=== PATIENT | male | born 1955 | race African-American/Black ===

== ENCOUNTER 2017-10-06 04:38 | Emergency (ER) | payer MEDICARE, OTHER ==
--- NOTE | 2017-10-06 04:39 | ED Physician Documentation ---
Skin Rash - HISTORIAN Historian: patient - HPI Stated Complaint: allergic reaction to PCN Chief Complaint: Skin Rash Onset: minutes (45) Timing: still present Duration: persistent since Location: generalized Quality: itchy Identified Cause?: Yes (PCN ) Where: home Context: Medication Exposure: antibiotic Context: Food Exposure: none Further Comments: yes (He states he started to have some tooth pain around 2 am and he took an old PCN that he was prescribed in Jul. He states he then noticed ithicng and rash so he came to ER. He has not tired any meds for allergy . No shortness of breath. No chest pain) - ROS CONST: none CVS/RESP: denies: chest pain, shortness of breath EYES/ENT: denies: eye itching, sore throat GI/: denies: vomiting, nausea MS/SKIN/LYMPH: rash NEURO/PSYCH: none - PAST HX Past History: none Immunizations: UTD Allergies/Adverse Reactions: Allergies Allergy/AdvReac Type Severity Reaction Status Date / Time aspirin Allergy Verified 01/12/15 14:34 Penicillins Allergy Verified 10/06/17 05:06 Home Medications: Ambulatory Orders Medication Instructions Recorded Gabapentin [Neurontin] 300 mg PO HS 01/12/15 Ibuprofen [Advil] 400 mg PO BID 01/12/15 Metformin HCl [Glucophage] 1,000 mg PO BID 01/12/15 gliPIZIDE [Glucotrol] 10 mg PO 0730 01/12/15 - SOCIAL HX Smoking History: non-smoker Alcohol Use: none Drug Use: none - FAMILY HX Family History: none - VITAL SIGNS Vital Signs: Vital Signs Temp Pulse Resp BP Pulse Ox 98.1 F 78 18 128/64 98 10/06/17 04:40 10/06/17 07:28 10/06/17 07:28 10/06/17 07:28 10/06/17 04:40 - REVIEWED ASSESSMENTS Nursing Assessment Reviewed: Yes Vitals Reviewed: Yes ED Results Lab/Radiology - Orders Orders: ED Orders Category Date Time Status diphenhydrAMINE HCL [Benadryl] Med 10/06/17 04:43 Discontinued 50 mg .ROUTE .STK-MED ONE diphenhydrAMINE HCL [Benadryl] Med 10/06/17 04:42 Discontinued 50 mg IM NOW ONE methylPREDNISolone ACETATE [Depo-Medrol] Med 10/06/17 04:43 Discontinued 80 mg IM .STK-MED ONE methylPREDNISolone ACETATE [Depo-Medrol] Med 10/06/17 04:43 Discontinued 80 mg IM NOW PRN Skin Rash Physical Exam - EXAM General Appearance: no acute distress, alert Skin: warm,dry, skin rash (uricartia over chest and both upper arms ) Location: trunk, chest, extremities Character: urticarial Symptoms: warmth, swelling Extremities: non-tender, nml ROM, no edema EENT: eyes nml inspection, lips nml, gums nml, pharynx nml Neck: trachea midline, no swelling Respiratory: no resp distress, chest non-tender CVS: reg. rate & rhythm, heart sounds nml Abdomen: non-tender Neuro/Psych: oriented x3, CN's nml as tested, motor nml, sensation nml, mood/ affect nml Discharge Clincal Impression: Allergic reaction caused by a drug Qualifiers: Encounter type: initial encounter Qualified Code(s): T78.40XA - Allergy, unspecified, initial encounter Referrals: Dina Couch FNP [Primary Care Provider] - 2 Days Comments: 1. Do not take PCN any further - notify PCP 2. Benadryl at home OTC as needed for rash 3. Rash will possibly increase with warmth 4. Return to ER for any further concerns Condition: Stable Disposition: 01 HOME, SELF-CARE Decision to Admit: NO Date of Decison to Admit: 10/06/17 Decision Time: 05:30
[2017-10-06] MEDS ORDERED: diphenhydrAMINE HCL 50 MG/ML VIAL IM ONE (04:42)
[2017-10-06] MEDS ORDERED: diphenhydrAMINE HCL 50 MG/ML VIAL ONE (04:43)
[2017-10-06] MEDS ORDERED: methylPREDNISolone ACETATE 80 MG/ML VIAL IM PRN (04:43)
[2017-10-06] MEDS ORDERED: methylPREDNISolone ACETATE 80 MG/ML VIAL IM ONE (04:43)
[2017-10-06 07:30] VITALS: BP 128/64
== END 2017-10-06 07:10 | disposition home or self-care (01) ==
LOC: ED 04:38
DX: T78.40XA Allergy, unspecified, initial encounter (principal); X58.XXXA Exposure to other specified factors, initial encounter; Y92.9 Unspecified place or not applicable; Y93.9 Activity, unspecified
CPT/HCPCS: J1040; J1200; 99283

== ENCOUNTER 2019-02-07 05:54 | Emergency (ER) | payer OTHER ==
--- NOTE | 2019-02-07 06:23 | ED Physician Documentation ---
General Adult - HISTORIAN Historian: patient - HPI Stated Complaint: Constipated Chief Complaint: Abdominal Pain Onset: days ago (6) Timing: still present Severity: moderate Further Comments: yes (He states he started to have what he felt was constipation about one week ago. He states he had a small bowel movement earlier. He had some nasuea) - ROS CONST: no problems - PAST HX Past History: other (DM2) Immunizations: UTD Allergies/Adverse Reactions: Allergies Allergy/AdvReac Type Severity Reaction Status Date / Time ibuprofen Allergy Severe Shortness Verified 02/07/19 06:11 of Breath aspirin Allergy Verified 02/07/19 06:11 Penicillins Allergy Verified 02/07/19 06:11 Home Medications: Ambulatory Orders Medication Instructions Recorded Gabapentin [Neurontin] 300 mg PO TID 01/12/15 Metformin HCl [Glucophage] 1,000 mg PO BID 01/12/15 glipiZIDE [Glucotrol] 10 mg PO 0730 01/12/15 Insulin Glargine,Hum.rec.anlog 10 units SUBCUT HS 01/16/19 [Lantus Solostar] Lisinopril 5 mg PO DAILY 01/16/19 Pravastatin Sodium [Pravachol] 20 mg PO DAILY 01/16/19 Tamsulosin HCl [Flomax] 0.4 mg PO [id number] 01/16/19 - SOCIAL HX Smoking History: non-smoker Alcohol Use: none Drug Use: none - FAMILY HX Family History: No - VITAL SIGNS Vital Signs: Vital Signs Temp Pulse Resp BP Pulse Ox 97.2 F L 63 18 143/58 97 02/07/19 05:55 02/07/19 05:55 02/07/19 05:55 02/07/19 05:55 02/07/19 05:55 - REVIEWED ASSESSMENTS Nursing Assessment Reviewed: Yes Vitals Reviewed: Yes ED Results Lab/Radiology - Radiology Radiology Impressions: Examination: Abdomen: History: Abdominal discomfort Findings: 2 views obtained of the abdomen. No abnormal dilation of the large or small bowel. Air and stool throughout the large bowel. No suspicious calcification projecting over the renal fossa or the lower pelvic region. Osseous structures are appropriate for age. Impression: No bowel obstruction. No suspicious calcifications by plain film sensitivity. Electronically signed on Feb 07, 2019 6:43:26 AM CDT by: Salvador Wiseman - Orders Orders: ED Orders Category Date Time Status ABDOMEN 1VIEW [RAD] Stat Exams 02/07/19 Taken General Adult Physical Exam - PHYSICAL EXAM GENERAL APPEARANCE: no distress EENT: eye inspection normal, no signs of dehydration NECK: normal inspection RESPIRATORY: no resp distress, chest non-tender, breath sounds normal CVS: reg rate & rhythm, heart sounds normal ABDOMEN: non-tender, abnormal bowel sounds, decreased BS BACK: normal inspection SKIN: warm/dry EXTREMITIES: non-tender, normal range of motion, no evidence of injury, no edema NEURO: oriented X3 Discharge Clincal Impression: Constipation Qualifiers: Constipation type: unspecified constipation type Qualified Code(s): K59.00 - Constipation, unspecified Referrals: Dina Couch FNP [Primary Care Provider] - 2 Days Comments: 1. Mag Citrate 1/2 bottle now and 1/2 in 2 hours 2. INCREASE fluids 3. Increase fiber 4. Follow up with PCP In 2-4 days 5. Return to ER for any increasing concerns Condition: Stable Disposition: 01 HOME, SELF-CARE Decision to Admit: NO Date of Decison to Admit: 02/07/19 Decision Time: 06:45
--- NOTE | 2019-02-07 06:47 | Diagnostic Imaging Report ---
ZAINA DEVLIN [facility] [address] [facility] [address] [place], [place]. [address] Report Submission Date: Feb 07, 2019 6:43:26 AM CDT Patient Study Name: LUISA ALVAREZ Date: Feb 07, 2019 5:57:53 AM CDT Modality Type: DX Gender: M Description: ABDOMEN 1VIEW : 53 Institution: [facility] Physician: ZAINA DEVLIN Examination: Abdomen: History: Abdominal discomfort Findings: 2 views obtained of the abdomen. No abnormal dilation of the large or small bowel. Air and stool throughout the large bowel. No suspicious calcification projecting over the renal fossa or the lower pelvic region. Osseous structures are appropriate for age. Impression: No bowel obstruction. No suspicious calcifications by plain film sensitivity. Electronically signed on Feb 07, 2019 6:43:26 AM CDT by: Salvador JACOBS
[2019-02-07 06:52] VITALS: BP 134/60
== END 2019-02-07 06:52 | disposition home or self-care (01) ==
LOC: ED 05:54
DX: K59.00 Constipation, unspecified (principal)
CPT/HCPCS: 74018; 99283

== ENCOUNTER 2019-02-07 19:13 | Emergency (ER) | payer OTHER ==
[2019-02-07] MEDS ORDERED: 0.9 % SODIUM CHLORIDE 1,000 ML IV ONE ×2 (19:46→20:13)
--- NOTE | 2019-02-07 21:12 | ED Physician Documentation ---
Abdominal Pain - HISTORIAN Historian: patient - HPI Stated Complaint: Abdominal pain Chief Complaint: Abdominal Pain Onset: hours Timing: worse Context: denies: out of country travel, bad food, recent trauma Severity: severe Quality: pain, fullness Associated Symptoms: nausea, vomiting (x2 today). denies: fever, chills Exacerbated by: food Relieved by: nothing Further Comments: yes (63 year old male patient presents with complaints of worsening abdominal pain and constipation. Patient states he has only had very tiny BMs for the past 7-10 days. Was seen in ER 02/07/19 @0550 - KUB was negative for obstruction, patient drank 2 bottles of magnesium today with no BM, reports vomiting x 2 today; c/o nausea.) - ROS CONST: no problems GI/: constipation CVS/RESP: none EYES/ENT: none MS/SKIN/LYMPH: none NEURO/PSYCH: none - SOCIAL HX Smoking History: non-smoker - FAMILY HX Family History: other (cancer) - PAST HX Past History: denies: none Other History: diabetes Type 2, hypertension, other (BPH) Surgeries/Procedures: none Home Medications: Ambulatory Orders Medication Instructions Recorded Gabapentin [Neurontin] 300 mg PO TID 01/12/15 Metformin HCl [Glucophage] 1,000 mg PO BID 01/12/15 glipiZIDE [Glucotrol] 10 mg PO 0730 01/12/15 Insulin Glargine,Hum.rec.anlog 10 units SUBCUT HS 01/16/19 [Lantus Solostar] Lisinopril 5 mg PO DAILY 01/16/19 Pravastatin Sodium [Pravachol] 20 mg PO DAILY 01/16/19 Tamsulosin HCl [Flomax] 0.4 mg PO [id number] 01/16/19 Allergies/Adverse Reactions: Allergies Allergy/AdvReac Type Severity Reaction Status Date / Time ibuprofen Allergy Severe Shortness Verified 02/07/19 20:53 of Breath aspirin Allergy Verified 02/07/19 20:53 Penicillins Allergy Verified 02/07/19 20:53 - VITAL SIGNS Vital Signs: Vital Signs Temp Pulse Resp BP Pulse Ox 97.8 F 71 16 142/69 97 02/07/19 19:13 02/07/19 19:13 02/07/19 19:13 02/07/19 19:13 02/07/19 19:13 - REVIEWED ASSESSMENTS Nursing Assessment Reviewed: Yes Vitals Reviewed: Yes Progress - Progress Progress: Patient reports only voiding twice today "very small amount". [address] results with patient; will attempt to place huizar catheter to decompress bladder. 1000 Huizar catheter with >500cc urine - blood tinged. Reviewed CT results with patient a second time. Explained that he needs evaluation by oncology and urology. Patient prefers [facility]. Call to [facility] [address] Klein. ED Results Lab/Radiology - Radiology Radiology Impressions: Computed tomography abdomen pelvis without contrast History: Constipation, vomiting, abdominal pain Findings: Transverse abdomen and pelvis sections are obtained without contrast revealing incomplete imaging of the liver dome. Minimal bibasilar atelectasis is observed. Gallbladder diameter and wall thickness are normal. Bilateral renal cysts, mild right hydroureteronephrosis, and right perinephric stranding are observed. The spleen, liver, pancreas, and adrenals are unremarkable. Minimal aortic atherosclerosis is present. Bilateral L5 pars defects and minimal L5-S1 spondylolisthesis are observed. Small bowel loops are normal in caliber. The colon is moderately distended and filled with liquid stool. Pelvic sections reveal marked urinary bladder distention and moderate prostate enlargement. The right ureter is distended to the level of the pelvic brim, beyond which it is normal in caliber. There is no ureteral or bladder stone. The sigmoid colon is compressed by the distended urinary bladder. Liquid rectal stool is present. The seminal vesicles are unremarkable. The appendix is normal. A blastic S1 bone lesion exhibits poorly defined margins. Impression: 1. Moderate right obstructive uropathy. Differential includes compression by the markedly distended urinary bladder versus a distal ureteral stricture or neoplasm. Recommend urology consultation. 2. Large amount of liquid colorectal stool without constipation. The sigmoid colon is compressed by the distended urinary bladder so an obstructing sigmoid lesion cannot be excluded. 3. Blastic S1 bone lesion, indeterminate for metastatic disease. Recommend whole-body bone scan and oncologic evaluation. 4. Enlarged prostate, L5 pars defects, bilateral renal cysts, and minimal bibasilar atelectasis. Electronically signed on Feb 07, 2019 9:02:25 PM CDT by: Sagar Dumont - Orders Orders: ED Orders Category Date Time Status Huizar [Urinary catheterization] 1T Care 02/07/19 21:[address] IV Lock 1T Care 02/07/19 19:[address] ABD & PELVIS W/O CON Stat Exams 02/07/19 Taken CBC/PLATELET/DIFF Stat Lab 02/07/19 20:12 Received CMP Stat Lab 02/07/19 20:11 Received 0.9 % Sodium Chloride [Normal Saline] 1,000 ml Med 02/07/19 19:46 Discontinued IV NOW 0.9 % Sodium Chloride [Normal Saline] 1,000 ml Med 02/07/19 20:13 Discontinued IV NOW LIDOCAINE Urojet [Xylocaine UROJET] Med 02/07/19 21:17 Discontinued 5 ml .ROUTE .STK-MED ONE LIDOCAINE Urojet [Xylocaine UROJET] Med 02/07/19 21:19 Discontinued 5 ml MM NOW ONE Abdominal Pain Physical Exam - Physical Exam General Appearance: moderate distress EENT: eye inspection normal, ILEANA RESPIRATORY: no resp distress, chest non-tender, breath sounds normal CVS: reg rate & rhythm, heart sounds normal, equal pulses, no murmur, no gallop, PMI nml, no JVD, no friction rub, 24 ABDOMEN: tenderness, abnormal bowel sounds, decreased BS, other (distended) SKIN: normal color, warm/dry, NR, INT, PAL, DR EXTREMITIES: non-tender, normal range of motion, no evidence of injury, no edema, J, [employer] NEURO: oriented X3, CN's nml as tested, motor nml, sensation nml Vital Signs: Vital Signs Temp Pulse Resp BP Pulse Ox 97.8 F 71 16 142/69 97 02/07/19 19:13 02/07/19 19:13 02/07/19 19:13 02/07/19 19:13 02/07/19 19:13 Discharge Clincal Impression: Obstructive uropathy, Blastic S1 Lesion, Enlarged prostate Acute renal failure Qualifiers: Acute renal failure type: unspecified Qualified Code(s): N17.9 - Acute kidney failure, unspecified Condition: Fair Disposition: 02 XFER SHT-TRM HOSP Decision to Admit: NO Decision Time: 22:32
[2019-02-07] MEDS ORDERED: LIDOCAINE Urojet 5 ML JEL ONE (21:17)
[2019-02-07] MEDS ORDERED: LIDOCAINE Urojet 5 ML JEL MM ONE (21:19)
[2019-02-07 23:32] VITALS: BP 148/55
[2019-02-08 06:40] LABS: BASOPHILS % 0.3 % (0.0-1.5); NEUTROPHILS # 11.1 # k/uL (1.4-7.7)
--- NOTE | 2019-02-09 12:34 | Diagnostic Imaging Report ---
KASSI NICHOLE (AQUATIC BIOLOGIST) - ER [facility] [address] [facility] [address] [place], [place]. [address] Report Submission Date: Feb 07, 2019 9:02:25 PM CDT Patient Study Name: LUISA ALVAREZ Date: Feb 07, 2019 8:27:55 PM CDT Modality Type: CT\SR Gender: M Description: CT ABD PELVIS W/O CO : 53 Institution: [facility] Physician: KASSI NICHOLE (AQUATIC BIOLOGIST) - ER Computed tomography abdomen pelvis without contrast History: Constipation, vomiting, abdominal pain Findings: Transverse abdomen and pelvis sections are obtained without contrast revealing incomplete imaging of the liver dome. Minimal bibasilar atelectasis is observed. Gallbladder diameter and wall thickness are normal. Bilateral renal cysts, mild right hydroureteronephrosis, and right perinephric stranding are observed. The spleen, liver, pancreas, and adrenals are unremarkable. Minimal aortic atherosclerosis is present. Bilateral L5 pars defects and minimal L5-S1 spondylolisthesis are observed. Small bowel loops are normal in caliber. The colon is moderately distended and filled with liquid stool. Pelvic sections reveal marked urinary bladder distention and moderate prostate enlargement. The right ureter is distended to the level of the pelvic brim, beyond which it is normal in caliber. There is no ureteral or bladder stone. The sigmoid colon is compressed by the distended urinary bladder. Liquid rectal stool is present. The seminal vesicles are unremarkable. The appendix is normal. A blastic S1 bone lesion exhibits poorly defined margins. Impression: 1. Moderate right obstructive uropathy. Differential includes compression by the markedly distended urinary bladder versus a distal ureteral stricture or neoplasm. Recommend urology consultation. 2. Large amount of liquid colorectal stool without constipation. The sigmoid colon is compressed by the distended urinary bladder so an obstructing sigmoid lesion cannot be excluded. 3. Blastic S1 bone lesion, indeterminate for metastatic disease. Recommend whole-body bone scan and oncologic evaluation. 4. Enlarged prostate, L5 pars defects, bilateral renal cysts, and minimal bibasilar atelectasis. Electronically signed on Feb 07, 2019 9:02:25 PM CDT by: Sagar JACOBS
== END 2019-02-07 23:24 | disposition short-term general hospital (02) ==
LOC: ED 19:13
DX: N13.9 Obstructive and reflux uropathy, unspecified (principal); N17.9 Acute kidney failure, unspecified
CPT/HCPCS: 74176; 80053; 85025; 99282; J7030; 51702; S1016

== ENCOUNTER 2019-02-13 07:08 | Emergency (ER) | payer OTHER ==
--- NOTE | 2019-02-13 07:40 | ED Physician Documentation ---
General Adult - HISTORIAN Historian: patient - HPI Stated Complaint: nausea/vomiting Chief Complaint: General Adult Onset: days ago Timing: better Severity: moderate Further Comments: yes (Pt is a 63 yo male, seen here on 02/07/19 for constipation and renal failure. Pt had an obstructive uropathy and was given a huizar, which is still in place, and he was seen at [facility]. Pt had had elevated BUN/creatinine. Pt had nausea/vomiting after taking Bactrim which he was rx'd on d/c from [facility]. Pt had been on oral Cipro at [facility]. prior to discharge.) - ROS CONST: no problems EYES/ENT: none CVS/RESP: none GI/: none MS/SKIN/LYMPH: none - PAST HX Past History: other (DM, neuropathy, HLD, HTN, enlarged prostate, S1 blastic lesion.) Allergies/Adverse Reactions: Allergies Allergy/AdvReac Type Severity Reaction Status Date / Time ibuprofen Allergy Severe Shortness Verified 02/07/19 20:53 of Breath aspirin Allergy Verified 02/07/19 20:53 Penicillins Allergy Verified 02/07/19 20:53 sulfamethoxazole AdvReac Severe Vomiting Verified 02/13/19 08:26 [From Bactrim] trimethoprim [From Bactrim] AdvReac Severe Vomiting Verified 02/13/19 08:26 Home Medications: Ambulatory Orders Medication Instructions Recorded Gabapentin [Neurontin] 300 mg PO TID 01/12/15 Metformin HCl [Glucophage] 1,000 mg PO BID 01/12/15 glipiZIDE [Glucotrol] 10 mg PO 0730 01/12/15 Insulin Glargine,Hum.rec.anlog 10 units SUBCUT HS 01/16/19 [Lantus Solostar] Lisinopril 5 mg PO DAILY 01/16/19 Pravastatin Sodium [Pravachol] 20 mg PO DAILY 01/16/19 Tamsulosin HCl [Flomax] 0.4 mg PO [id number] 01/16/19 Finasteride [Proscar] 5 mg PO DAILY 02/13/19 Sulfamethoxazole/Trimethoprim 1 tab PO BID 02/13/19 [Bactrim DS] levoFLOXacin [Levaquin] 250 mg PO DAILY #7 tablet 02/13/19 - SOCIAL HX Smoking History: non-smoker Alcohol Use: none - FAMILY HX Family History: No - VITAL SIGNS Vital Signs: Vital Signs Temp Pulse Resp BP Pulse Ox 148/55 02/07/19 23:30 - REVIEWED ASSESSMENTS Nursing Assessment Reviewed: Yes Vitals Reviewed: Yes Progress - Progress Progress: Huizar cath changed in ER. Pt to f/u with urologist later this week. Stop Bactrim. Start Levaquin 250 mg. Take one tablet daily for 7 days and follow up with your urologist for further instructions. Monitor your blood sugar levels, which can be lowered with this medication. Monitor to avoid low blood sugar. General Adult Physical Exam - PHYSICAL EXAM GENERAL APPEARANCE: no distress EENT: pharynx normal NECK: normal inspection, supple RESPIRATORY: no resp distress, chest non-tender, breath sounds normal CVS: reg rate & rhythm, heart sounds normal ABDOMEN: soft, no organomegaly, normal bowel sounds, other (huizar cath/leg bag in place) BACK: normal inspection, no CVA tenderness SKIN: warm/dry, normal color EXTREMITIES: non-tender, normal range of motion, no evidence of injury NEURO: oriented X3, motor nml Discharge Clincal Impression: recent obstructive uropathy, possible adverse reaction to medication Prescriptions: levoFLOXacin [Levaquin] 250 mg PO DAILY #7 tablet Referrals: Dina Couch FNP [Primary Care Provider] - Condition: Good Disposition: 01 HOME, SELF-CARE Decision to Admit: NO Decision Time: 08:45
[2019-02-13 08:08] LABS: BASOPHILS % 0.4 % (0.0-1.5); NEUTROPHILS # 7.3 # k/uL (1.4-7.7)
[2019-02-13 08:55] VITALS: BP 112/58
[2019-02-15 06:33] LABS: APPEARANCE,URINE CLEAR (CLEAR); COLOR,URINE YELLOW (YELLOW); OCCULT BLOOD,URINE 2+ (NEGATIVE); PH URINE 5.5 (5.0 - 8.0); UROBILINOGEN URINE 0.2 Eu (0.2-1.0)
== END 2019-02-13 08:47 | disposition home or self-care (01) ==
LOC: ED 07:08
DX: N13.9 Obstructive and reflux uropathy, unspecified (principal)

== ENCOUNTER 2019-03-23 05:35 | Emergency (ER) | payer OTHER ==
[2019-03-31 10:50] LABS: APPEARANCE,URINE CLEAR (CLEAR); COLOR,URINE YELLOW (YELLOW)
[2019-03-31 10:51] LABS: OCCULT BLOOD,URINE TRACE-LYSED (NEGATIVE); PH URINE 7.5 (5.0 - 8.0); UROBILINOGEN URINE 0.2 Eu (0.2-1.0)
== END 2019-03-23 06:00 | disposition home or self-care (01) ==
LOC: ED 05:35
DX: N39.0 Urinary tract infection, site not specified (principal)
CPT/HCPCS: 81002; 87086; 87186; 99283